=== PATIENT | female | born 1995 | race Hispanic/Latino ===

== ENCOUNTER 2023-05-31 20:03 | Emergency (ER) | payer OTHER ==
[~2023-05-31] VITALS: Ht 157.5 cm; Wt 49.9 kg
[2023-05-31 21:30] LABS: RAPID GROUP A STREP negative (NEGATIVE)
[2023-05-31 21:42] LABS: COVID19 (SARS ANTIGEN RAPID) PRESUMPTIVE NEGATIVE (NEGATIVE); INFLUENZA TYPE A Negative For Type A (NEGATIVE); INFLUENZA TYPE B Negative For Type B (NEGATIVE)
[2023-05-31] MEDS ORDERED: ALBUHFA IH (22:00)
[2023-05-31] MEDS ORDERED: BUTA-271 PO (22:00)
[2023-05-31 22:06] VITALS: BP 121/77; PULSE 66; RESP 17; O2SAT 99
== END 2023-05-31 22:07 | disposition home or self-care (01) ==
LOC: EDH 20:03
DX: R06.00 Dyspnea, unspecified (principal); R09.81 Nasal congestion; I10 Essential (primary) hypertension; J45.909 Unspecified asthma, uncomplicated; Z20.822 Contact with and (suspected) exposure to COVID-19
CPT/HCPCS: 87426; 87804; 87880